=== PATIENT | male | born 1975 | race Asian ===

== ENCOUNTER → 2017-09-05 | Outpatient (CLI) | payer OTHER ==
--- NOTE | 2017-09-05 14:47 | RAD ---
MR of the right elbow Indication: Right elbow pain. Biceps tendinitis for 6 months. Technique: Standard multiplanar sequences are obtained. Findings: Anterior: Biceps tendon and brachialis tendon are intact. Posterior: The triceps tendon and insertion are intact. Medial: Common flexor tendon and ulnar collateral ligament are intact. Lateral: Common extensor tendon intact. Lateral ulnar collateral and radial collateral ligaments appear intact. Fluid: No significant effusion. Joints: No advanced DJD. Bones: No focal lesion. No acute fracture. Soft tissues: No concerning edema or fluid accumulation Ulnar nerve: Unremarkable Impression: No evidence of acute abnormality or internal derangement. Electronically signed by: Germain Neri MD (09/05/2017 2:44 PM) [facility]
== END | disposition home or self-care (01) ==
LOC: MRI 12:54
PROVIDERS: ATTEND Nurse Practitioner Gerontology
DX: M75.21 Bicipital tendinitis, right shoulder (principal); M25.521 Pain in right elbow
CPT/HCPCS: 73221

== ENCOUNTER → 2017-10-29 | Outpatient (CLI) | payer OTHER ==
[2017-10-29 08:31] LABS: ALBUMIN 4.4 g/dL (3.4-5.0); ALBUMIN/GLOBULIN RATIO 1.4 (1.0-1.7); ALK PHOS 46 U/L (46-116); ALT (SGPT) 48 U/L (16-63); ANION GAP 9 (6-14); AST (SGOT) 29 U/L (15-37); BLOOD UREA NITROGEN 19 mg/dL (8-26); BUN/CREATININE RATIO 17 (6-20); CALCIUM 9.3 mg/dL (8.5-10.1); CARBON DIOXIDE 28 mmol/L (21-32); CHLORIDE 105 mmol/L (98-107); CHOLESTEROL 156 mg/dL (0-200); CHOLESTEROL/HDL RATIO 2.6; CREATININE 1.1 mg/dL (0.7-1.3); GFR 72.7; GLUCOSE 105 mg/dL (70-99); HDLC 61 mg/dL (40-60); LDLC 83 mg/dL (0-100); NON-HDL CHOLESTEROL 95 mg/dL (0-129); POTASSIUM 4.2 mmol/L (3.5-5.1); SODIUM 142 mmol/L (136-145); TOTAL BILIRUBIN 0.6 mg/dL (0.2-1.0); TOTAL PROTEIN 7.5 g/dL (6.4-8.2); TRIGLYCERIDES 60 mg/dL (0-150); URIC ACID 6.5 mg/dL (3.5-7.2); VLDLC 12 mg/dL (0-40)
[2017-10-29 14:21] LABS: HEMOGLOBIN A1C 5.3 % (4.8-5.6)
== END | disposition home or self-care (01) ==
LOC: LAB 07:39
DX: E78.5 Hyperlipidemia, unspecified (principal); M10.9 Gout, unspecified; E88.81 Metabolic syndrome and other insulin resistance
CPT/HCPCS: 36415; 80053; 80061; 83036; 84550

== ENCOUNTER → 2017-12-05 | Outpatient (CLI) | payer OTHER ==
[2017-12-05 15:04] LABS: BILIRUBIN,URINE NEGATIVE (NEG); CLARITY,URINE CLEAR; COLOR,URINE YELLOW; GLUCOSE,URINE NEGATIVE (NEG); NITRITE,URINE NEGATIVE (NEG); PROTEIN,URINE NEGATIVE (NEG-TRACE); UROBILINOGEN,URINE 0.2 mg/dL (0.2 mg/dL)
[2017-12-05 15:17] LABS: BACTERIA,URINE 0 /HPF (0-FEW); RBC,URINE 0 /HPF (0-2); SQUAMOUS EPITHELIAL CELL,UR OCC /LPF; WBC,URINE 0 /HPF (0-4)
== END | disposition home or self-care (01) ==
LOC: LAB 13:39
DX: N39.0 Urinary tract infection, site not specified (principal)
CPT/HCPCS: 81001

== ENCOUNTER → 2017-12-07 | Outpatient (CLI) | payer OTHER | END | disposition home or self-care (01) | LOC: CT 13:34 | DX: R10.9 Unspecified abdominal pain (principal) | CPT/HCPCS: 74176 ==

== ENCOUNTER → 2018-01-15 | Outpatient (CLI) | payer OTHER ==
[~2018-01-15] MED LIST: CONTRAST GIVEN MC; IOHEXOL 240 MG/ML 50ML VIAL. PO
== END | disposition home or self-care (01) ==
LOC: CT 11:14
DX: R10.30 Lower abdominal pain, unspecified (principal)
CPT/HCPCS: 74176; Q9966

== ENCOUNTER → 2018-03-15 | Outpatient (CLI) | payer OTHER ==
[2018-03-15 07:46] LABS: ANION GAP 5 (6-14); BLOOD UREA NITROGEN 17 mg/dL (8-26); CALCIUM 9.1 mg/dL (8.5-10.1); CARBON DIOXIDE 30 mmol/L (21-32); CHLORIDE 103 mmol/L (98-107); CHOLESTEROL 234 mg/dL (0-200); CHOLESTEROL/HDL RATIO 4.2; CREATININE 1.2 mg/dL (0.7-1.3); GFR 65.8; GLUCOSE 108 mg/dL (70-99); HDLC 56 mg/dL (40-60); LDLC 155 mg/dL (0-100); NON-HDL CHOLESTEROL 178 mg/dL (0-129); SODIUM 138 mmol/L (136-145); TRIGLYCERIDES 113 mg/dL (0-150); VLDLC 23 mg/dL (0-40)
== END | disposition home or self-care (01) ==
LOC: LAB 07:04
DX: E78.4 Other hyperlipidemia (principal)
CPT/HCPCS: 36415; 80048; 80061

== ENCOUNTER → 2018-09-06 | Outpatient (CLI) | payer OTHER ==
--- NOTE | 2018-09-09 10:23 | CARD ---
MR#: [id number] Date of Study: 09/06/2018 Ordering Physician: ARUN JOHNSTON, Referring Physician: ARUN JOHNSTON, Tech: Janeth Mercado APPROVED REPORT EXAM: Two-dimensional and M-mode echocardiogram with Doppler and color Doppler. Other Information Quality : ExcellentHR: 69bpm INDICATION Palpitations 2D DIMENSIONS RVDd2.8 (2.9-3.5cm)Left Atrium(2D)3.3 (1.6-4.0cm) IVSd0.8 (0.7-1.1cm)Aortic Root(2D)3.4 (2.0-3.7cm) LVDd5.2 (3.9-5.9cm)LVOT Diameter2.2 (1.8-2.4cm) PWd1.2 (0.7-1.1cm)LVDs3.9 (2.5-4.0cm) FS (%) 26.1 %SV66.3 ml LVEF(%)50.9 (>50%) Aortic Valve AoV Peak Walter.101.9cm/sAoV VTI19.1cm AO Peak GR.4.1mmHgLVOT Peak Walter.64.7cm/s LVOT VTI 12.64cmAO Mean GR.3mmHg NAZ (VMAX)1.55hy8SXI (VTI)2.63cm2 Mitral Valve MV E Hqirgplt12.6cm/sMV DECEL [id number] MV A Mzcbspfl10.6cm/sMV LWX58bn E/A Ratio1.3MVA (PHT)3.71cm2 TDI E/Lateral E'5.4E/Medial E'7.6 Pulmonary Valve PV Peak Nagkqyqm48.0cm/sPV Peak Grad.3mmHg Tricuspid Valve RAP LQGVKZFC1yrKfMX Peak Gr.19mmHg [id number] LEFT VENTRICLE The left ventricle is normal size. There is normal left ventricular wall thickness. The left ventricu lar systolic function is normal. The Ejection Fraction is 55-60%. There is normal LV segmental wall m otion. The left ventricular diastolic function and filling is normal for age. RIGHT VENTRICLE The right ventricle is normal size. There is normal right ventricular wall thickness. The right ventr icular systolic function is normal. ATRIA The left atrium size is normal. The right atrium size is normal. The interatrial septum is intact wit h no evidence for an atrial septal defect or patent foramen ovale as noted on 2-D or Doppler imaging. AORTIC VALVE The aortic valve is normal in structure and function. Doppler and Color Flow revealed no significant aortic regurgitation. There is no significant aortic valvular stenosis. MITRAL VALVE The mitral valve is normal in structure and function. There is no evidence of mitral valve prolapse. There is no mitral valve stenosis. Doppler and Color Flow revealed trace mitral regurgitation. TRICUSPID VALVE The tricuspid valve is normal in structure and function. Doppler and Color Flow revealed trace tricus pid regurgitation. There is no tricuspid valve stenosis. PULMONIC VALVE The pulmonary valve is normal in structure and function. Doppler and Color Flow revealed trace to mil d pulmonic valvular regurgitation. GREAT VESSELS The aortic root is normal in size. The IVC is normal in size and collapses >50% with inspiration. PERICARDIAL EFFUSION There is no evidence of significant pericardial effusion. Critical Notification Critical Value: No <Conclusion> The left ventricular systolic function is normal. The Ejection Fraction is 55-60%. There is normal LV segmental wall motion. Trace mitral regurgitation. Trace tricuspid regurgitation. There is no evidence of significant pericardial effusion. Signed by : Arun Johnston Electronically Approved : 09/09/2018 10:22:48
== END | disposition home or self-care (01) ==
LOC: ECHO 14:27
PROVIDERS: ATTEND Internal Medicine Cardiovascular Disease
DX: R00.2 Palpitations (principal)
CPT/HCPCS: 93306

== ENCOUNTER → 2019-02-20 | Outpatient (CLI) | payer OTHER ==
[2019-02-20 08:26] LABS: ALBUMIN 4.2 g/dL (3.4-5.0); ALBUMIN/GLOBULIN RATIO 1.2 (1.0-1.7); CALCIUM 9.7 mg/dL (8.5-10.1); CHOLESTEROL/HDL RATIO 2.7; CREATININE 1.2 mg/dL (0.7-1.3); GFR 65.5; POTASSIUM 3.9 mmol/L (3.5-5.1); TOTAL BILIRUBIN 0.8 mg/dL (0.2-1.0); TOTAL PROTEIN 7.6 g/dL (6.4-8.2)
[2019-02-20 23:08] LABS: HEMOGLOBIN A1C 5.7 % (4.8-5.6)
== END | disposition home or self-care (01) ==
LOC: LAB 07:10
PROVIDERS: ATTEND Nurse Practitioner
DX: E78.5 Hyperlipidemia, unspecified (principal); E88.81 Metabolic syndrome and other insulin resistance
CPT/HCPCS: 36415; 80053; 80061; 83036

== ENCOUNTER → 2019-05-28 | Outpatient (CLI) | payer OTHER ==
[2019-05-28 15:39] LABS: BASO % 1 % (0-3); EOS % 1 % (0-3); HEMATOCRIT 41.4 % (39.0-53.0); HEMOGLOBIN 14.2 g/dL (13.0-17.5); LYMPH # 1.8 x10^3/uL (1.0-4.8); LYMPH % 34 % (24-48); MEAN CORPUSCULAR HEMOGLOBIN 33 pg (25-35); MEAN CORPUSCULAR HGB CONC 34 g/dL (31-37); MEAN CORPUSCULAR VOLUME 97 fL (79-100); MONO # 0.5 x10^3/uL (0.0-1.1); MONO % 10 % (0-9); NEUT # 2.8 x10^3/uL (1.8-7.7); NEUT % 55 % (31-73); PLATELET COUNT 254 x10^3/uL (140-400); RED BLOOD COUNT 4.29 x10^6/uL (4.30-5.70); RED CELL DISTRIBUTION WIDTH 12.4 % (11.5-14.5); WHITE BLOOD COUNT 5.2 x10^3/uL (4.0-11.0)
[2019-05-28 15:45] LABS: ALBUMIN 4.5 g/dL (3.4-5.0); ALBUMIN/GLOBULIN RATIO 1.4 (1.0-1.7); CALCIUM 9.4 mg/dL (8.5-10.1); CREATININE 1.2 mg/dL (0.7-1.3); GFR 65.2; POTASSIUM 4.1 mmol/L (3.5-5.1); TOTAL BILIRUBIN 0.7 mg/dL (0.2-1.0); TOTAL PROTEIN 7.8 g/dL (6.4-8.2)
== END | disposition home or self-care (01) ==
LOC: LAB 15:10
PROVIDERS: ATTEND Nurse Practitioner
DX: M79.10 Myalgia, unspecified site (principal)
CPT/HCPCS: 36415; 80053; 82550; 84484; 85025

== ENCOUNTER 2019-06-01 14:16 | Emergency (ER) | payer OTHER ==
[~2019-06-01] VITALS: Ht 180.3 cm; Wt 95.7 kg
[2019-06-01] MEDS ORDERED: MORPHINE SULFATE 2 MG/ML VIAL. IV/SQ PRN (14:30)
[2019-06-01] MEDS ORDERED: NITROGLYCERIN SUBLINGUAL 0.4 MG BOTTLE OF 25. SL PRN (14:30)
[2019-06-01 14:48] LABS: BASO # 0.1 x10^3/uL (0.0-0.2); BASO % 1 % (0-3); EOS # 0.1 x10^3/uL (0.0-0.7); EOS % 1 % (0-3); HEMATOCRIT 41.9 % (39.0-53.0); HEMOGLOBIN 14.4 g/dL (13.0-17.5); LYMPH % 34 % (24-48); MEAN CORPUSCULAR HEMOGLOBIN 33 pg (25-35); MEAN CORPUSCULAR HGB CONC 34 g/dL (31-37); MEAN CORPUSCULAR VOLUME 97 fL (79-100); MONO # 0.6 x10^3/uL (0.0-1.1); MONO % 9 % (0-9); NEUT # 3.3 x10^3/uL (1.8-7.7); NEUT % 55 % (31-73); PLATELET COUNT 261 x10^3/uL (140-400); RED BLOOD COUNT 4.34 x10^6/uL (4.30-5.70); RED CELL DISTRIBUTION WIDTH 12.6 % (11.5-14.5)
[2019-06-01] MEDS ORDERED: ASPIRIN 325 MG TABLET PO ONE (15:00)
[2019-06-01 15:02] LABS: CALCIUM 9.4 mg/dL (8.5-10.1); CREATININE 1.2 mg/dL (0.7-1.3); GFR 65.2; POTASSIUM 4.2 mmol/L (3.5-5.1); PROTHROMBIN TIME PATIENT 12.4 SEC (11.7-14.0)
--- NOTE | 2019-06-01 15:06 | RAD ---
PORTABLE CHEST 1V Clinical Indication: Chest pain Comparison: None. Findings: The cardiomediastinal silhouette is normal. Lungs are clear. There is no pneumothorax. No pleural effusion is appreciated. No acute bone abnormality. IMPRESSION: No acute cardiopulmonary process. Electronically signed by: Altaf Major MD (06/01/2019 3:03 PM) [facility]
[2019-06-01 15:08] LABS: ALBUMIN 4.3 g/dL (3.4-5.0); ALBUMIN/GLOBULIN RATIO 1.2 (1.0-1.7); TOTAL BILIRUBIN 0.7 mg/dL (0.2-1.0); TOTAL PROTEIN 7.9 g/dL (6.4-8.2)
[2019-06-01] MEDS ORDERED: ASPIRIN ENTERIC COATED 325 MG TABLET.DR. PO STA (15:15)
--- NOTE | 2019-06-01 15:44 | PHYS DOC ---
Adult General Chief Complaint Chief Complaint: CHEST PAIN HPI HPI Patient is a 44 year old female with history of high cholesterol who presents to the ED today complaining over sharp 5 out of 10 intermittent epigastric pain for one week. Denies any nausea, vomiting. He describes the pain as bloating sensation. Denies anything relieving or exacerbating the pain. He was also complaining of weakness to the left upper extremity. Denies any pain radiating to the left upper extremity. Denies any headache, nausea, vomiting. He states he was seen by a up provider at the PCPs office on 05/28/2019-had labs done which were negative. Off not patient works with and is requesting to be admitted with him. He called him Review of Systems Review of Systems Constitutional: Denies fever or chills [] Eyes: Denies change in visual acuity, redness, or eye pain [] HENT: Denies nasal congestion or sore throat [] Respiratory: Denies cough or shortness of breath [] Cardiovascular: Reports epigastric pain GI: Reports bloating. Denies abdominal pain, nausea, vomiting, bloody stools or diarrhea [] : Denies dysuria or hematuria [] Musculoskeletal: Denies back pain or joint pain [] Integument: Denies rash or skin lesions [] Neurologic: Denies headache, focal weakness or sensory changes [] All other systems were reviewed and found to be within normal limits, except as documented in this note. Current Medications Current Medications Current Medications Medications (Trade) Dose Ordered Sig/Iris Start Time Stop Time Status Last Admin Dose Admin Morphine Sulfate (Morphine Sulfate) 2 mg PRN Q15MIN PRN 06/01/19 14:30 06/02/19 14:29 Nitroglycerin (Nitrostat) 0.4 mg PRN Q5MIN PRN 06/01/19 14:30 06/02/19 14:29 Allergies Allergies Allergies Coded Allergies Type Severity Reaction Last Updated Verified Penicillins Allergy Intermediate 06/01/19 Yes Physical Exam Physical Exam Constitutional: Well developed, well nourished, no acute distress, non-toxic appearance. [] HENT: Normocephalic, atraumatic, bilateral external ears normal, oropharynx moist, no oral exudates, nose normal. [] Eyes: PERRLA, EOMI, conjunctiva normal, no discharge. [] Neck: Normal range of motion, no tenderness, supple, no stridor. [] Cardiovascular:Heart rate regular rhythm, no murmur [] Lungs & Thorax: Bilateral breath sounds clear to auscultation [] Abdomen: Bowel sounds normal, soft, no tenderness, no masses, no pulsatile masses. [] Skin: Warm, dry, no erythema, no rash. [] Back: No tenderness, no CVA tenderness. [] Extremities: No tenderness, no cyanosis, no clubbing, ROM intact, no edema. [] Neurologic: Alert and oriented X 3, normal motor function, normal sensory function, no focal deficits noted. [] Psychologic: Affect normal, judgement normal, mood normal. [] Current Patient Data Lab Values Laboratory Tests Test 06/01/19 14:30 White Blood Count 6.0 x10^3/uL (4.0-11.0) Red Blood Count 4.34 x10^6/uL (4.30-5.70) Hemoglobin 14.4 g/dL (13.0-17.5) Hematocrit 41.9 % (39.0-53.0) Mean Corpuscular Volume 97 fL (79-100) Mean Corpuscular Hemoglobin 33 pg (25-35) Mean Corpuscular Hemoglobin Concent 34 g/dL (31-37) Red Cell Distribution Width 12.6 % (11.5-14.5) Platelet Count 261 x10^3/uL (140-400) Neutrophils (%) (Auto) 55 % (31-73) Lymphocytes (%) (Auto) 34 % (24-48) Monocytes (%) (Auto) 9 % (0-9) Eosinophils (%) (Auto) 1 % (0-3) Basophils (%) (Auto) 1 % (0-3) Neutrophils # (Auto) 3.3 x10^3/uL (1.8-7.7) Lymphocytes # (Auto) 2.0 x10^3/uL (1.0-4.8) Monocytes # (Auto) 0.6 x10^3/uL (0.0-1.1) Eosinophils # (Auto) 0.1 x10^3/uL (0.0-0.7) Basophils # (Auto) 0.1 x10^3/uL (0.0-0.2) Prothrombin Time 12.4 SEC (11.7-14.0) Prothrombin Time INR 1.0 (0.8-1.1) Sodium Level 144 mmol/L (136-145) Potassium Level 4.2 mmol/L (3.5-5.1) Chloride Level 106 mmol/L (98-107) Carbon Dioxide Level 28 mmol/L (21-32) Anion Gap 10 (6-14) Blood Urea Nitrogen 19 mg/dL (8-26) Creatinine 1.2 mg/dL (0.7-1.3) Estimated GFR (Cockcroft-Gault) 65.2 BUN/Creatinine Ratio 16 (6-20) Glucose Level 103 mg/dL (70-99) H Calcium Level 9.4 mg/dL (8.5-10.1) Magnesium Level 2.0 mg/dL (1.8-2.4) Total Bilirubin 0.7 mg/dL (0.2-1.0) Aspartate Amino Transferase (AST) 27 U/L (15-37) Alanine Aminotransferase (ALT) 32 U/L (16-63) Alkaline Phosphatase 42 U/L (46-116) L Creatine Kinase 180 U/L (39-308) Creatine Kinase MB (Mass) 0.7 ng/mL (0.0-3.6) Creatine Kinase MB Relative Index 0.4 % (0-4) Troponin I Quantitative < 0.017 ng/mL (0.000-0.055) XY-Sel-B-Type Natriuretic Peptide 19 pg/mL (0-124) Total Protein 7.9 g/dL (6.4-8.2) Albumin 4.3 g/dL (3.4-5.0) Albumin/Globulin Ratio 1.2 (1.0-1.7) Lipase 173 U/L (73-393) Thyroid Stimulating Hormone (TSH) 1.899 uIU/mL (0.358-3.74) Laboratory Tests 06/01/19 14:30 Laboratory Tests 06/01/19 14:30 EKG EKG 1423 Interpreted by sinus rhythm HR 71 no STEMI Radiology/Procedures Radiology/Procedures []PROCEDURE: PORTABLE CHEST 1V PORTABLE CHEST 1V Clinical Indication: Chest pain Comparison: None. Findings: The cardiomediastinal silhouette is normal. Lungs are clear. There is no pneumothorax. No pleural effusion is appreciated. No acute bone abnormality. IMPRESSION: No acute cardiopulmonary process. Electronically signed by: Altaf Major MD (06/01/2019 3:03 PM) [facility] DICTATED and SIGNED BY: ALTAF MAJOR MD DATE: 06/01/19 1503 Course & Med Decision Making Course & Med Decision Making Pertinent Labs and Imaging studies reviewed. (See chart for details) This is a 44-year-old male patient presenting to the ED today with epigastric. Symptoms began a week ago. Patient was seen at the PCPs office on 05/28/2019 and had negative labs. Patient works with -requesting to be admitted under him. He called him himself. [phone]- spoke to him and requested we admit him under him 1453-Called for bed 1508 Walked to the room to give patient updates and found him with Dr. Nuvia flowers-Plan is to do labs and if negative he goes home 1542 labs are negative. Spoke with Dr. Madera who requested we d/c him to home and he will have outpatient Echo in AM D/c in stable condition. See Heart score marylou Dragon Disclaimer Dragon Disclaimer This electronic medical record was generated, in whole or in part, using a voice recognition dictation system. The HEART Score for CP Pts HEART Score for Chest Pain: HEART Score for Chest Pain Response (Comments) Value History Slighlty/Non-Suspicious 0 ECG Normal 0 Age >45 - < 65 1 Risk Factors 1 or 2 Risk Factors 1 Troponin < Normal Limit 0 Total 2 Risk Factors: Risk Factors: DM, Current or recent (<one month) smoker, HTN, HLP, family history of CAD, obesity. Risk Scores: Score 0 - 3: 2.5% MACE over next 6 weeks - Discharge Home Score 4 - 6: 20.3% MACE over next 6 weeks - Admit for Clinical Observation Score 7 - 10: 72.7% MACE over next 6 weeks - Early Invasive Strategies Departure Departure Impression: Primary Impression: Chest pain Disposition: HOME, SELF-CARE Condition: STABLE Referrals: SANJANA GEORGE MD (PCP) Follow up as soon as you can RUBI MADERA MD Follow up tomorrow with the echocardiogram Patient Instructions: Chest Pain (Nonspecific), [id number] Additional Instructions: You were evaluated in the emergency room for chest pain. Your cardiac workup is negative, as discussed with Dr. Madera please follow-up with the echocardiogram tomorrow. Come back to the ED at any point symptoms worsen. Problem Qualifiers Primary Impression: Chest pain Chest pain type: unspecified Qualified Codes: R07.9 - Chest pain, unspecified SUZIE HERNANDEZ APRN Jun 01, 2019 15:44
--- NOTE | 2019-06-01 15:45 | PDOC ---
Provider Note Provider Note Cardiology history and physical Reason for evaluation the ER: Shoulder pain and diaphoresis History of present illness: 44-year-old male well known to us who comes into the hospital due to concern for cardiac problems. He over the last week or so has been having some issues of epigastric discomfort, nausea and lightheadedness. This had improved slightly and today after some strenuous work had some more vertigo and an episode of lightheadedness and when his arrived home was noting that he had significant diaphoresis and not of concern for cardiac issues he is brought in for evaluation. He was evaluated by his primary care physician with some labs recently which did not reveal any pathology and specifically had a negative troponin approximate 4 days ago. Upon arrival to the ER his vital signs were unremarkable. His initial laboratory evaluation was also unremarkable. His EKG was within normal limits. Recently with strenuous work around the house for exercise activity he's not had any reproducible left arm pain, jaw pain, nausea or chest pain. He does not have any dyspnea. He's had this aching left shoulder pain which does not appear to be Musko skeletal in etiology either. This appears to be intermittent. No prior history of cervical issues. Past medical history: 1. Prior history of abdominal issues with gastroesophageal reflux disease Social history: No alcohol, tobacco or illicit drug use. 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 Family history: Notable for mother who had a stroke in her 40s. His father has not had any cardiac issues. Review of systems: No obvious other issues such as excessive stress. Discussed with his as well. Medications no current cardiovascular medications Physical examination Vital signs stable Normal cardiac and pulmonary exam. Soft abdomen. Diagnostic studies including EKG, chest x-ray and laboratory studies are unremarkable. Impression: 1. Generalized abdominal discomfort: Less likely to be cardiac in nature as he does not have any exertional dyspnea or chest pain. Possibly related to gastroesophageal reflux disease versus ulcer. Etiology of diaphoresis is unclear. No obvious signs of vertigo at this time. Recommendations: 1. I had a long discussion with the patient and at this present time given his low risk presentation we will plan for outpatient echocardiogram for evaluation of his epigastric discomfort and chest pain. Consider outpatient EGD and evaluation with GI. If subsequent to his echo being normal and GI workup being unremarkable he still has chest discomfort or epigastric discomfort we could then consider a coronary CTA on an outpatient basis. Discussed with the patient and his . Agreeable for discharge to the ER if there are no other acute concerns from the ER team. RUBI FLAHERTY MD Jun 01, 2019 15:45
[2019-06-01 16:12] VITALS: BP 123/84
--- NOTE | 2019-06-02 06:33 | EKG ---
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
== END 2019-06-01 16:18 | disposition home or self-care (01) ==
LOC: ER 14:16 → 2 SOUTH 14:48 → UNDOADMIN 14:48
DX: R07.89 Other chest pain (principal); R10.13 Epigastric pain; E78.00 Pure hypercholesterolemia, unspecified; M79.602 Pain in left arm; R53.1 Weakness
CPT/HCPCS: 36415; 71045; 80053; 82553; 83690; 83735; 83880; 84443; 84484; 85025; 85610; 93005; 99285-25

== ENCOUNTER → 2019-06-02 | Outpatient (CLI) | payer OTHER ==
[2019-06-01 16:12] VITALS: BP 123/84
--- NOTE | 2019-06-02 10:39 | CARD ---
MR#: [id number] Date of Study: 06/02/2019 Ordering Physician: RUBI FLAHERTY, Referring Physician: RUBI FLAHERTY, Tech: Zonia Lee [facility] APPROVED REPORT EXAM: Two-dimensional and M-mode echocardiogram with Doppler and color Doppler. Other Information Quality : Good INDICATION Chest Pain 2D DIMENSIONS RVDd2.4 (2.9-3.5cm)Left Atrium(2D)3.4 (1.6-4.0cm) IVSd1.0 (0.7-1.1cm)Aortic Root(2D)3.2 (2.0-3.7cm) LVDd5.4 (3.9-5.9cm)LVOT Diameter2.3 (1.8-2.4cm) PWd0.8 (0.7-1.1cm)LVDs4.0 (2.5-4.0cm) FS (%) 30.0 %SV71.5 ml LVEF(%)60.0 (>50%) Aortic Valve AoV Peak Walter.114.3cm/sAoV VTI22.5cm AO Peak GR.5.2mmHgLVOT Peak Walter.94.5cm/s AO Mean GR.3mmHgAVA (VMAX)3.49cm2 NAZ (VTI)3.30cm2 Mitral Valve MV E Jpnbestp18.7cm/sMV DECEL VSHC239mr MV A Tbhmhzsw05.7cm/sE/A Ratio1.2 Tricuspid Valve TR P. Uyfqkzfm448kq/sRAP AKIEBVFX2orXw TR Peak Gr.51pgFzRBWF29kqVe Pulmonary Vein S1 Iwnmapvf29.7cm/sD2 Ndlljxvq60.5cm/s LEFT VENTRICLE The left ventricle is normal size. There is normal left ventricular wall thickness. The left ventricu lar systolic function is normal and the ejection fraction is within normal range. The Ejection Fracti on is 55-60%. There is normal LV segmental wall motion. The left ventricular diastolic function and f illing is normal for age. RIGHT VENTRICLE The right ventricle is normal size. The right ventricular systolic function is normal. ATRIA The left atrium size is normal. The right atrium size is normal. The interatrial septum is intact wit h no evidence for an atrial septal defect or patent foramen ovale as noted on 2-D or Doppler imaging. AORTIC VALVE The aortic valve is normal in structure and function. Doppler and Color Flow revealed no significant aortic regurgitation. There is no significant aortic valvular stenosis. MITRAL VALVE The mitral valve is normal in structure and function. There is no evidence of mitral valve prolapse. There is no mitral valve stenosis. Doppler and Color Flow revealed no mitral valve regurgitation note d. TRICUSPID VALVE The tricuspid valve is normal in structure and function. Doppler and Color Flow revealed physiologica l tricuspid regurgitation. The PA pressure was estimated at 24 mmHg. There is no tricuspid valve sten osis. PULMONIC VALVE The pulmonary valve is normal in structure and function. Doppler and Color Flow revealed mild pulmoni c valvular regurgitation. There is no pulmonic valvular stenosis. GREAT VESSELS The aortic root is normal in size. The ascending aorta is mildly dilated at 3.5 cm. The IVC is normal in size and collapses >50% with inspiration. PERICARDIAL EFFUSION There is no evidence of significant pericardial effusion. Critical Notification Critical Value: No <Conclusion> The left ventricular systolic function is normal and the ejection fraction is within normal range. Th e Ejection Fraction is 55-60%. There is normal LV segmental wall motion. The ascending aorta is mildly dilated at 3.5 cm. Normalized to BSA, no significant dilation with low risk of rupture. Signed by : Rubi Flaherty, Electronically Approved : 06/02/2019 10:38:58
== END | disposition home or self-care (01) ==
LOC: ECHO 09:49
PROVIDERS: ATTEND Internal Medicine Cardiovascular Disease
DX: I08.8 Other rheumatic multiple valve diseases (principal)
CPT/HCPCS: 93306

== ENCOUNTER → 2019-06-04 | Outpatient (CLI) | payer OTHER ==
[2019-06-01 16:12] VITALS: BP 123/84
[~2019-06-04] MED LIST changes: +CETI10TA22 PO; -CONTRAST GIVEN MC; +CRESTOR10 MG PO; -IOHEXOL 240 MG/ML 50ML VIAL. PO; +PANT20TA2 PO; +TRAZ-118 PO
--- NOTE | 2019-06-04 09:43 | RAD ---
MRI of the brain without contrast 06/04/2019 Clinical History: Dizziness. Left-sided numbness and tingling. Technique: Unenhanced T1-weighted sagittal and axial, T2-weighted axial and coronal and FLAIR and diffusion-weighted axial images of the brain were obtained. Findings: The ventricles and sulci are within normal limits in size and configuration. No area of significant abnormal signal intensity is seen involving brain parenchyma. No extra-axial fluid collection is seen. There is no MRI evidence of acute ischemia/infarction. Mild mucosal thickening in seen scattered throughout the paranasal sinuses. A 8 mm mucous retention cyst is seen involving the right maxillary sinus. There are minimal bilateral mastoid effusions. Normal flow voids are seen within the major vascular structures surrounding the brain parenchyma. Impression: 1. Negative MRI of the brain. 2. Mild paranasal sinus and mastoid disease. Electronically signed by: Huy Britt MD (06/04/2019 9:40 AM) [facility]
--- NOTE | 2019-06-04 09:47 | RAD ---
MRI of the cervical spine without contrast 06/04/2019 CLINICAL HISTORY: Left-sided numbness and tingling. TECHNIQUE: Unenhanced T1-weighted, T2-weighted and inversion recovery sagittal and gradient echo and T2-weighted axial images of the cervical spine were obtained. FINDINGS: Mild lateral curvature of the cervical spine is seen convex to the right. There is straightening of the normal cervical lordosis. Degenerative signal changes are seen involving all of the disks of the cervical spine. The marrow signal of the visualized bony structures is within normal limits. The cervical spinal cord is normal morphology, position, and signal characteristics. Mild degenerative changes are seen throughout the cervical disc spaces consisting of minimal to mild generalized disc bulges and degenerative changes involving the uncovertebral and facet joints. These findings do not result in areas of significant central spinal canal or neural foraminal stenosis. IMPRESSION: Mild degenerative changes are seen involving the cervical spine as discussed above. These findings do not result in significant central spinal canal or neural foraminal stenosis. No area of abnormal signal intensity is seen involving the cervical spinal cord. Electronically signed by: Huy Britt MD (06/04/2019 9:44 AM) [facility]
--- NOTE | 2019-06-04 11:14 | RAD ---
Examination: MRI of the left elbow without contrast HISTORY: History of left lateral elbow pain during flexion. COMPARISON: None available TECHNIQUE: Multiplanar, multisequence MR imaging of the left elbow was performed without contrast. FINDINGS: The attachment of the triceps tendon to the olecranon process grossly appears intact. The alignment of the elbow joint grossly appears unremarkable. Minimal elbow joint effusion. The attachment of the common extensor tendon, common flexor tendons grossly appears intact. The visualized ulnar collateral ligament, radial collateral ligament, lateral ulnar collateral ligament attachment grossly appears intact. The attachment of the biceps, brachialis tendon grossly appears intact. Small subchondral cystic change identified in the anterior aspect of the radius head. The ulnar nerve within the cubital tunnel grossly appears unremarkable. 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 Electronically signed by: Santosh Lundberg MD (06/04/2019 11:11 AM) [facility]
== END | disposition home or self-care (01) ==
LOC: MRI 07:36
PROVIDERS: ATTEND Psychiatry & Neurology Neurology
DX: M19.022 Primary osteoarthritis, left elbow (principal); M47.812 Spondylosis without myelopathy or radiculopathy, cervical region; M25.422 Effusion, left elbow; J34.1 Cyst and mucocele of nose and nasal sinus; H74.8X3 Other specified disorders of middle ear and mastoid, bilateral
CPT/HCPCS: 70551; 72141; 73221

== ENCOUNTER → 2019-06-05 | Outpatient (CLI) | payer OTHER ==
[2019-06-01 16:12] VITALS: BP 123/84
--- NOTE | 2019-06-05 16:23 | KCIC ---
Coronary artery calcium score dated June 05, 2019. No comparison available. Clinical Indication: Calcium screening. History of hyperlipidemia. Technical factors: High resolution, computed tomography of the heart was performed with ECG gating and suspended respiration. No contrast material was administered. Post processing was performed on the 3-D computer workstation using diastolic phase images to measure the amount of coronary vascular calcium. Scoring was performed utilizing the Agatston Method. Results: Thorax: No significant abnormality is identified in the lungs or mediastinum. Note that this CT exam is limited to the heart and adjacent structures. Coronary arteries: Left main coronary artery: 0. Left anterior descending coronary artery: 96.4. Left circumflex coronary artery: 0. Right coronary artery: 0. Total coronary artery calcium score: 96.4. The presence of coronary calcium confirms the presence of atherosclerotic plaque. The greater the amount of coronary calcium, the greater the likelihood of stenotic or occlusive coronary artery disease. However, there is not a one-to-one relationship, and findings may not be site specific. The total amount of calcium correlates best with the total amount of atherosclerotic plaque, although the true "plaque burden" may be underestimated by calcium score. mild coronary atherosclerosis is present. Individuals in this score range typically have mild to moderate luminal irregularity at coronary angiography. There is a Low to intermediate risk of cardiovascular events based on this test. CONCLUSIONS: 1. Coronary artery calcium score is 96.4 Coronary atherosclerosis is present, limited amount. 2. Intermediate risk of cardiovascular event. Recommendations: 1. Further evaluation and prevention strategies should be based on global assessment of cardiovascular risk factors in addition to the results of this test. 2. Aggressive reduction of modifiable cardiovascular risk factors should be considered. Electronically signed by: Jimi Castellanos MD (06/05/2019 4:20 PM) [place] [id number]
== END | disposition home or self-care (01) ==
LOC: KCIC CT 14:58
PROVIDERS: ATTEND Internal Medicine Cardiovascular Disease
DX: Z13.6 Encounter for screening for cardiovascular disorders (principal); I25.10 Atherosclerotic heart disease of native coronary artery without angina pectoris; E78.5 Hyperlipidemia, unspecified
CPT/HCPCS: 75571

== ENCOUNTER → 2019-06-06 | Day surgery (SDC) | payer OTHER ==
[~2019-06-06] MED LIST changes: +IV RINGERS,LACTATED 1000ML 1,000 ML IV SCH; +PROPOFOL 20 ML IV ONE
[2019-06-06 11:36] VITALS: BP 142/83
--- NOTE | 2019-06-07 06:37 | CONS ---
DATE OF CONSULTATION: 06/06/2019 GASTROINTESTINAL CONSULTATION REFERRING PHYSICIAN: Sanjana Robison MD REASON FOR CONSULTATION: Dysphagia, heartburn, epigastric pain. HISTORY OF PRESENT ILLNESS: A 44-year-old male whose past medical history is significant for GERD, hyperlipidemia, arthritis, is seen with persistent dysphagia for solids despite Pepcid and Protonix. He does not smoke or drink, but does use caffeine. He has risk factors for reflux. Weight and appetite have been stable. Cardiac evaluation has been unrevealing as well for chest pain and he is here today for upper endoscopy with possible biopsy and/or dilatation. PAST MEDICAL HISTORY: GERD, hyperlipidemia. ALLERGIES: PENICILLIN. MEDICATIONS: Zyrtec, Protonix, Crestor, and trazodone. 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 He is . Does not drink or smoke. FAMILY HISTORY: Noncontributory. REVIEW OF SYSTEMS: As per records. PHYSICAL EXAMINATION: GENERAL: Reveals a well-nourished, well-developed male who is alert and cooperative, in no acute distress. VITAL SIGNS: Temperature is 98, pulse 77, respirations 20. HEENT: Normocephalic, atraumatic head. Pupils and extraocular muscles are not tested. Sclerae anicteric. NECK: Supple. LUNGS: Clear. CARDIOVASCULAR: Reveals an S1, S2 without S3, S4, or appreciable murmur. ABDOMEN: Reveals a soft abdomen, normal bowel sounds, without appreciable hepatosplenomegaly. EXTREMITIES: Reveals no cyanosis, clubbing, or edema. IMPRESSION: Epigastric pain, gastroesophageal reflux disease and dysphagia, etiology to be determined. Peptic stricture, malignancy, and Beach's are in the differential. Recommend upper endoscopy, possible biopsy and/or dilatation. Risks and benefits of the procedure including risk of hemorrhage and perforation during the operation have been discussed. The patient is willing to proceed at this time. YANIRA GARRETT MD DR: KURT/eneida JOB#: [id number] / [id number] [facility] SANJANA ROBISON MD
--- NOTE | 2019-06-09 16:06 | PATHOLOGY ---
[facility] Accession Number: [id number] . 01 Material submitted: . esophagus - DISTAL ESOPHAGUS. Modifiers: distal . 01 Clinical history: . Pre-OP DX: Dyspepsia Post-OP DX: Rule out Beach's . 02 Diagnosis: Esophageal biopsies, distal esophagus: - Segments of hyperplastic squamous esophageal mucosa consistent with reflux esophagitis. (JPM:pita; 06/09/2019) QMS/06/09/2019 . 02 Comment: Sections of the distal esophageal biopsy reveal segments of focally tangentially oriented hyperplastic squamous esophageal mucosa. The findings are consistent with reflux esophagitis. There is no evidence of Beach's change, dysplasia, or malignancy. (JPM:pita; 06/09/2019) . 02 Electronically signed: . Bijan Fairbanks MD, Pathologist NPI- [id number] . 01 Gross description: . Received in formalin labeled "Gal[place], [place], distal esophagus," are 5 segments of alonzo soft tissue measuring 1.1 x 0.9 x 0.2 cm in aggregate dimensions and ranging from 0.4 to 0.6 cm in maximum dimension. The specimen is submitted entirely in cassette A1. (TSD; 06/06/2019) TOB/TOB . 02 Pathologist provided ICD-10: K21.0 . 02 CPT . 091157 Specimen Comment: A courtesy copy of this report has been sent to Specimen Comment: [phone]. Specimen Comment: Report sent to / DR GEORGE Performed at: 01 [facility] [address], [place], [place] [id number] MD Jan Reyes MD Phone: [phone] Performed at: 02 [facility] [address] [place], [place] [id number] MD Bijan Fairbanks MD Phone: [phone]
== END ==
LOC: ENDOS 09:37
PROVIDERS: ATTEND Internal Medicine Gastroenterology
DX: K21.0 Gastro-esophageal reflux disease with esophagitis (principal); K22.2 Esophageal obstruction; E78.5 Hyperlipidemia, unspecified; Z87.39 Personal history of other diseases of the musculoskeletal system and connective tissue; Z88.0 Allergy status to penicillin
CPT/HCPCS: 43239; 43450; 88305; J2704

== ENCOUNTER → 2019-06-13 | Outpatient (CLI) | payer OTHER ==
[2019-06-06 11:36] VITALS: BP 142/83
[~2019-06-13] MED LIST changes: -IV RINGERS,LACTATED 1000ML 1,000 ML IV SCH; -PROPOFOL 20 ML IV ONE
== END | disposition home or self-care (01) ==
LOC: LAB 08:28
PROVIDERS: ATTEND Internal Medicine Gastroenterology
DX: R19.5 Other fecal abnormalities (principal)
CPT/HCPCS: 87338

== ENCOUNTER → 2019-06-19 | Outpatient (CLI) | payer OTHER ==
[2019-06-06 11:36] VITALS: BP 142/83
--- NOTE | 2019-06-19 08:47 | RAD ---
Examination: Ultrasound abdomen limited HISTORY: History of right upper quadrant abdominal pain COMPARISON: None available FINDINGS: The pancreas is not well-visualized due to bowel gas. The visualized IVC within normal limits of dimension. No evidence of gallstones identified. The echogenicity of the liver grossly appears unremarkable. The right kidney measures 10.3 cm. IMPRESSION: Unremarkable visualized exam. Electronically signed by: Santosh Lundberg MD (06/19/2019 8:44 AM) [place] [id number]
== END | disposition home or self-care (01) ==
LOC: US 08:00
PROVIDERS: ATTEND Nurse Practitioner
DX: R10.11 Right upper quadrant pain (principal); R11.0 Nausea
CPT/HCPCS: 76705

== ENCOUNTER → 2020-08-04 | Outpatient (CLI) | payer OTHER ==
[2019-06-06 11:36] VITALS: BP 142/83
[~2020-08-04] MED LIST changes: +BARIUM SULFATE 340 GM SUSPENSION. PO ONE; +BARIUM SULFATE 60% 355 ML SUSP PO ONE; +BARIUM SULFATE 700 MG TABLET PO ONE; -CETI10TA22 PO; +CETI10TA74 PO; +SIMETHICONE/SOD BICARB/CITRIC ACID PACKET. PO ONE
--- NOTE | 2020-08-04 18:20 | RAD ---
Examination: Barium swallow INDICATION: 45-year-old man with lower anterior neck pressure sensation in the region of the suprasternal notch during swallowing. He reports a history of known reflux and endoscopically treated Schatzki's ring. TECHNIQUE: In the lateral projection, rapid sequence fluoroscopic imaging of the cervical esophagus was performed during ingestion of thick barium. Thereafter, bilateral upright posterior oblique imaging of the thoracic esophagus was performed during ingestion of thick barium and a barium tablet. Supine imaging of the thoracic esophagus during ingestion of thin barium was also performed and provocative maneuvers for gastroesophageal reflux were attempted. A total of 2.2 minutes of fluoroscopy time was utilized and 7 fluoroscopic images were obtained for procedural documentation (along with 7 cine loop clips). FINDINGS: No stenosis at the cervicothoracic junction was observed during imaging of the cervical esophagus. No diverticuli were observed either. The barium tablet momentarily stopped at the gastroesophageal junction but passed without difficulty and without significant delay thereafter. Bilateral posterior oblique imaging of the thoracic esophagus showed no evidence of a hiatal hernia, or residual Schatzki's ring. There was some retrograde propulsion of contrast at the level of the aortic arch. In the supine position however, there was incomplete clearance of thin barium from the thoracic esophagus despite multiple dry swallows. Some retrograde propulsion of contrast material was observed at the level of the left mainstem bronchus. In addition, even when the bolus had successfully transmitted to the esophageal vestibule and nearly completely emptied into the stomach, retrograde propulsion of the small residual in the vestibule was seen traveling all the way to the lower cervical esophagus. IMPRESSION: Evidence of esophageal dysmotility with some retrograde propulsion of barium contrast most conspicuously in the supine position as described. Electronically signed by: Armen Hunt MD (08/04/2020 6:17 PM) [id number]
== END ==
LOC: RAD 13:07
PROVIDERS: ATTEND Internal Medicine Gastroenterology
DX: K21.9 Gastro-esophageal reflux disease without esophagitis (principal); R13.10 Dysphagia, unspecified; Q25.49 Other congenital malformations of aorta
CPT/HCPCS: 74220

== ENCOUNTER → 2020-08-10 | Outpatient (CLI) | payer OTHER ==
[2019-06-06 11:36] VITALS: BP 142/83
[~2020-08-10] MED LIST changes: -BARIUM SULFATE 340 GM SUSPENSION. PO ONE; -BARIUM SULFATE 60% 355 ML SUSP PO ONE; -BARIUM SULFATE 700 MG TABLET PO ONE; -SIMETHICONE/SOD BICARB/CITRIC ACID PACKET. PO ONE
[2020-08-10 10:02] LABS: ALBUMIN 4.3 g/dL (3.4-5.0); ALBUMIN/GLOBULIN RATIO 1.1 (1.0-1.7); C-REACTIVE PROTEIN 0.7 mg/L (0-3.3); CALCIUM 9.7 mg/dL (8.5-10.1); CREATININE 1.1 mg/dL (0.7-1.3); GFR 71.8; POTASSIUM 3.7 mmol/L (3.5-5.1); TOTAL BILIRUBIN 0.8 mg/dL (0.2-1.0); TOTAL PROTEIN 8.1 g/dL (6.4-8.2)
[2020-08-10 10:08] LABS: BASO % 1 % (0-3); EOS # 0.1 x10^3/uL (0.0-0.7); EOS % 2 % (0-3); HEMATOCRIT 43.2 % (39.0-53.0); HEMOGLOBIN 14.5 g/dL (13.0-17.5); LYMPH # 2.1 x10^3/uL (1.0-4.8); LYMPH % 35 % (24-48); MEAN CORPUSCULAR HEMOGLOBIN 33 pg (25-35); MEAN CORPUSCULAR HGB CONC 34 g/dL (31-37); MEAN CORPUSCULAR VOLUME 97 fL (79-100); MONO # 0.5 x10^3/uL (0.0-1.1); MONO % 9 % (0-9); NEUT # 3.3 x10^3/uL (1.8-7.7); NEUT % 54 % (31-73); PLATELET COUNT 304 x10^3/uL (140-400); RED BLOOD COUNT 4.45 x10^6/uL (4.30-5.70); RED CELL DISTRIBUTION WIDTH 12.2 % (11.5-14.5)
[2020-08-10 10:11] LABS: CHOLESTEROL/HDL RATIO 2.6
[2020-08-11 00:11] LABS: HEMOGLOBIN A1C 5.6 % (4.8-5.6)
== END ==
LOC: LAB 08:23
PROVIDERS: ATTEND Nurse Practitioner
DX: E88.81 Metabolic syndrome and other insulin resistance (principal)
CPT/HCPCS: 36415; 80053; 80061; 83036; 84443; 85025; 86140

== ENCOUNTER → 2020-08-11 | Outpatient (CLI) | payer OTHER ==
[2019-06-06 11:36] VITALS: BP 142/83
[~2020-08-11] MED LIST changes: +IOHEXOL 300 MG/ML 100ML VIAL. IV ONE; +IOHEXOL 300 MG/ML 100ML VIAL. ONE
--- NOTE | 2020-08-11 16:02 | RAD ---
EXAMINATION: CT CHEST W/CONTRAST (CT CHEST WITHOUT IV CONTRAST) CLINICAL HISTORY: Chest discomfort Technique: Spiral CT acquisition of the chest from the thoracic inlet to the upper abdomen without contrast. CT Dose Reduction Employed: One or more of the following individualized dose reduction techniques were utilized for this examination: 1. Automated exposure control 2. Adjustment of the mA and/or kV according to patient size 3. Use of iterative reconstruction technique. Comparison: None FINDINGS: Limitations: None. Lines, tubes, and devices: None. Lung parenchyma and pleura: No consolidation. No suspicious pulmonary nodule. No pleural effusion. Normal variant azygous fissure. Central airways are patent. Thoracic inlet, heart, and mediastinum: No lymphadenopathy in the axillary, mediastinal, or hilar regions. The thoracic aorta and main pulmonary artery are normal in caliber. The cardiac chambers are normal in size. No coronary artery atherosclerotic calcifications are noted, although the study is not optimized for coronary assessment. No pericardial effusion or thickening. Bones and soft tissues: No acute osseous abnormality. Upper abdomen: Hypoattenuation of the hepatic parenchyma, consistent with steatosis. IMPRESSION: No evidence of acute cardiopulmonary abnormality. Electronically signed by: Miller Leos DO (08/11/2020 3:59 PM) [id number]
== END ==
LOC: CT 15:14
PROVIDERS: ATTEND Internal Medicine Cardiovascular Disease
DX: K76.0 Fatty (change of) liver, not elsewhere classified (principal); K22.8 Other specified diseases of esophagus
CPT/HCPCS: 71260; Q9967

== ENCOUNTER → 2020-09-22 | Outpatient (CLI) | payer OTHER ==
[2019-06-06 11:36] VITALS: BP 142/83
[~2020-09-22] MED LIST changes: -IOHEXOL 300 MG/ML 100ML VIAL. IV ONE; -IOHEXOL 300 MG/ML 100ML VIAL. ONE
--- NOTE | 2020-09-22 16:03 | RAD ---
ABDOMEN LTD History: Reason: RIGHT UPPER QUADRANT PAIN. NAUSEA. HEPATIC STEATOSIS. / Spl. Instructions: / History: Comparison: June 19, 2019. Technique: Transabdominal ultrasound images are obtained of the right upper quadrant. Findings: Visualized pancreas is is not well seen due to overlying bowel gas. Liver is mildly increased in echogenicity. Right hepatic lobe measures 13.3 cm. Portal flow is hepatopedal. Gallbladder sludge. No gallbladder wall thickening. No pericholecystic fluid. Common bile duct measures 4.9 mm in diameter. The right kidney measures 10.5 x 4.7 x 2.8 cm. No hydronephrosis. Visualized portions of the aorta and IVC have normal caliber. IMPRESSION: 1. Gallbladder sludge. 2. Mildly increased hepatic echotexture, may indicate steatosis. Electronically signed by: Renzo Ricardo DO (09/22/2020 4:00 PM) [id number]
== END ==
LOC: US 13:11
PROVIDERS: ATTEND Nurse Practitioner
DX: K76.0 Fatty (change of) liver, not elsewhere classified (principal); R11.0 Nausea
CPT/HCPCS: 76705

== ENCOUNTER → 2021-05-11 | Day surgery (SDC) | payer OTHER ==
[~2021-05-11] VITALS: Ht 180.3 cm; Wt 212.0 kg
[~2021-05-11] MED LIST changes: +IV RINGERS,LACTATED 1000ML 1,000 ML IV ONE; +LIDOCAINE 2% PF 5 ML VIAL. ONE; +PROPOFOL 10 MG/ML (20ML) VIAL. IV ONE
[2021-05-11 08:44] VITALS: BP 134/86
[2021-05-11 09:50] VITALS: BP 119/80
== END | disposition home or self-care (01) ==
LOC: ENDOS 08:24
PROVIDERS: ATTEND Internal Medicine Gastroenterology
DX: R13.10 Dysphagia, unspecified (principal); K31.89 Other diseases of stomach and duodenum; K21.9 Gastro-esophageal reflux disease without esophagitis; E78.00 Pure hypercholesterolemia, unspecified; Z79.899 Other long term (current) drug therapy; Z98.890 Other specified postprocedural states; Z88.0 Allergy status to penicillin
CPT/HCPCS: 43235; 43450; J2704

== ENCOUNTER → 2021-08-16 | Outpatient (CLI) | payer OTHER ==
[2021-05-11 09:50] VITALS: BP 119/80
[~2021-08-16] MED LIST changes: -IV RINGERS,LACTATED 1000ML 1,000 ML IV ONE; -LIDOCAINE 2% PF 5 ML VIAL. ONE; -PROPOFOL 10 MG/ML (20ML) VIAL. IV ONE
== END ==
LOC: LAB 11:30
PROVIDERS: ATTEND Internal Medicine Pulmonary Disease
DX: R05.9 Cough, unspecified (principal); R53.81 Other malaise; Z20.822 Contact with and (suspected) exposure to COVID-19
CPT/HCPCS: U0003; U0005

== ENCOUNTER → 2022-02-22 | Outpatient (CLI) | payer OTHER ==
[2021-05-11 09:50] VITALS: BP 119/80
--- NOTE | 2022-02-22 12:43 | RAD ---
CT of the chest without contrast 02/22/2022 Indication: Possible pulmonary nodule in outside chest radiograph. Comparison study: [Chest radiograph June 01, 2019 Technique: Multidetector CT imaging of the chest was performed without the administration of contrast Findings: Heart size is normal. Mild calcification of the LAD noted. No pericardial effusion or mediastinal dev nopathy is seen. No pneumothorax, pleural effusion, or focal infiltrate is seen. No concerning pulmonary nodules ident ified. No stigmata of tuberculosis or other granulomatous disease is seen. Azygos lobe incidentally n oted. No acute osseous abnormality is seen. IMPRESSION: 1. No pulmonary nodule or other evidence of acute cardiopulmonary process. No stigmata of tuberculosi s or other granulomatous disease identified. 2. Mild calcification noted in left anterior descending coronary artery CT DOSING PQRS STATEMENT: One or more of the following individualized dose reduction techniques were utilized for this examinat ion: 1. Automated exposure control 2. Adjustment of the mA and/or kV according to patient size 3. Use of iterative reconstruction technique Electronically signed by: Anders Celaya MD (02/22/2022 12:40 PM) [id number]
== END ==
LOC: RAD 11:58
PROVIDERS: ATTEND Internal Medicine Cardiovascular Disease
DX: I25.10 Atherosclerotic heart disease of native coronary artery without angina pectoris (principal)
CPT/HCPCS: 71250